=== PATIENT | male | born 1950 | race Hispanic/Latino ===

== ENCOUNTER 2017-03-24 12:11 | Day surgery (SDC) | payer BC ==
[2017-03-24] MEDS ORDERED: NACL BACTERIOSTATIC INFILTRATI ONE (12:50)
[2017-03-24] MEDS ORDERED: VANCOMYCIN/NS 1 GM/250 ML 1 GM/250 ML BAG IV NR (13:30)
--- NOTE | 2017-03-24 13:54 | Anesthesia Day of Surgery ---
Anesthesia Day of Surgery - Day of Surgery Patient Examined: Yes Patient H&P Reviewed: Yes Patient is NPO: Yes
[2017-03-24] MEDS ORDERED: ZOFRAN IV PRN (13:56)
[2017-03-24] MEDS ORDERED: DILAUDID IV PRN (13:56)
[2017-03-24] MEDS ORDERED: SUBLIMAZE IV PRN (13:56)
--- NOTE | 2017-03-24 13:56 | Anesthesia Consultation ---
Anesthesia Consult and Med Hx Date of service: 03/24/17 - Airway Anesthetic Teeth Evaluation: Good ROM Head & Neck: Adequate Mental/Hyoid Distance: Adequate Mallampati Class: Class III Intubation Access Assessment: Possibly Difficult - Pulmonary Exam CTA: Yes - Cardiac Exam Cardiac Exam: RRR - Pre-Operative Health Status ASA Pre-Surgery Classification: ASA3 Proposed Anesthetic Plan: General - Pulmonary Hx Smoking: Yes (STOPPED X 50 YRS) Hx Sleep Apnea: (MORRIS PRE SCREEN HIGH RISK) - Cardiovascular System Hx Hypertension: No - Endocrine Hx Non-Insulin Dependent Diabetes: Yes Hx Hypothyroidism: Yes - Other Systems Hx Cancer: No Hx Obesity: Yes
[2017-03-24] MEDS ORDERED: NACL 0.9% 1000 ML 1,000 ML IV SCH ×2 (14:00)
[2017-03-24] MEDS ORDERED: PEPCID IV NR (14:00)
--- NOTE | 2017-03-24 15:57 | Short Stay Summary ---
Short Stay Documentation Date of service: 03/24/17 - History H&P: obtained from office - Allergies and Medications Current Medications: Allergies Penicillins Allergy (Verified 03/17/17 17:25) Hives Home Medications Medication Instructions Recorded Confirmed Last Taken Type Aspirin [Lo-Dose Aspirin EC] 81 mg PO DAILY 03/17/17 03/24/17 03/16/17 History Colesevelam [Welchol] 625 mg PO DAILY 03/17/17 03/17/17 03/23/17 History Cyanocobalamin (Vitamin B-12) 1,000 mcg PO DAILY 03/17/17 03/17/17 03/23/17 History [Vitamin B-12] Levothyroxine [Synthroid] 50 mcg PO QAM 03/17/17 03/24/17 03/23/17 History Pitavastatin Calcium [LiVALO] 4 mg PO DAILY 03/17/17 03/17/17 03/23/17 History Pyridoxine [Vitamin B-6] 50 mg PO DAILY 03/17/17 03/17/17 03/23/17 History Terazosin [Hytrin] 10 mg PO QHS 03/17/17 03/17/17 03/23/17 History metFORMIN [Glucophage] 500 mg PO QDAY 03/17/17 03/24/17 03/23/17 History Ascorbic Acid [Vitamin C] 1,000 mg PO DAILY 03/24/17 03/24/17 03/23/17 History Cholecalciferol (Vitamin D3) 2,000 unit PO DAILY 03/24/17 03/24/17 03/23/17 History [Vitamin D3] Cinnamon Bark [Cinnamon] 3 tab PO DAILY 03/24/17 03/24/17 03/23/17 History Multivitamin [Multiple Vitamins] 1 each PO DAILY 03/24/17 03/24/17 03/23/17 History [place]-3S/Dha/Epa/Fish Oil [Fish 1 cap PO DAILY 03/24/17 03/24/17 03/23/17 History Oil [place]-3 Softgel] Active Medications Famotidine (Pepcid) 20 mg IV PREOP NR Stop: 03/24/17 23:59 Last Admin: 03/24/17 14:21 Dose: 20 mg Fentanyl (Sublimaze) 50 mcg IV Q5MIN PRN PRN Reason: Pain , Severe (7-10) Stop: 03/24/17 23:59 Hydromorphone HCl (Dilaudid) 0.25 mg IV Q10MIN PRN PRN Reason: Pain, Moderate (4-6) Stop: 03/24/17 23:59 Vancomycin HCl (Vancomycin/Ns 1 Gm/250 Ml) 1 gm in 250 mls @ 166.667 mls/hr IV PREOP NR Stop: 03/24/17 23:59 Last Admin: 03/24/17 14:38 Dose: 166.667 mls/hr Sodium Chloride (Nacl 0.9% 1000 Ml) 1,000 mls @ 100 mls/hr IV DIRECT FRANCOIS Last Admin: 03/24/17 14:20 Dose: 100 mls/hr Sodium Chloride (Nacl 0.9% 1000 Ml) 1,000 mls @ 75 mls/hr IV DIRECT FRANCOIS Ondansetron HCl (Zofran) 4 mg IV ONCE PRN PRN Reason: Nausea And Vomiting - Brief post op/procedure progress note Date of procedure: 03/24/17 Pre-op diagnosis: phimosis Post-op diagnosis: same Procedure: circumcision Anesthesia: GETA Findings: phimosis Surgeon: ARNIE VOGEL Estimated blood loss: minimal Pathology: list Specimen disposition: to lab Condition: stable - Hospital course Hospital course: orpacuhome - Disposition Condition at discharge: Good Disposition: DC-01 TO HOME OR SELFCARE Short Stay Discharge Plan Activity: advance as tolerated Diet: advance as tolerated Follow up with: ARNIE VOGEL MD [Staff Physician] - 7 Days Prescriptions: Sulfamethoxazole/Trimethoprim [Bactrim DS TAB] 1 each PO BID #10 tablet
[2017-03-24] MEDS ORDERED: DIPRIVAN 10 MG/ML IV ONE ×2 (16:07→16:27)
[2017-03-24] MEDS ORDERED: SUBLIMAZE ONE (16:07)
[2017-03-24] MEDS ORDERED: MARCAINE 0.25% INFILTRATI ONE ×2 (16:35→17:48)
[2017-03-24] MEDS ORDERED: ZOFRAN ONE (16:35)
[2017-03-24] MEDS ORDERED: TRIPLE ANTIBIOTIC TP ONE ×2 (16:35→17:48)
[2017-03-24] MEDS ORDERED: XYLOCAINE MPF 2% ONE (16:37)
[2017-03-24] MEDS ORDERED: NACL 0.9% IR ONE (17:48)
--- NOTE | 2017-03-24 18:31 | Post Anesthesia Evaluation ---
- Post Anesthesia Evaluation Patient Participated: Yes Airway Patent: Yes Stable Respiratory Function: Yes Temp > 96.8F: Yes Pain Manageable: Yes Adequeate Hydration: Yes Anesthesia Complications: No Other Comments: Awaiting H&H
[2017-03-24] MEDS ORDERED: NORCO 5/325 PO PRN (18:40)
[2017-03-24 19:50] VITALS: BP 148/89
--- NOTE | 2017-04-02 07:51 | Operative Report ---
PREOPERATIVE DIAGNOSIS: Phimosis, balanitis. POSTOPERATIVE DIAGNOSIS: Phimosis, balanitis. PROCEDURE: Circumcision. SURGEON: David Haider M.D. ANESTHESIA: General. SPECIMENS: Foreskin. ESTIMATED BLOOD LOSS: Minimal. COMPLICATIONS: None. FINDINGS: No deviation. CLINICAL INDICATIONS: Counseled RCBA, antibiotics, SCDs. The patient with recurrent inflammation, infection, unable to retract the foreskin. DESCRIPTION OF PROCEDURE: The patient was transferred to the OR suite in supine position, anesthesia, prepped and draped in standard fashion. At this point, our attention was taken to the foreskin, unable to retract. Then incision made at 12 o'clock position and then able to retract. Next, a ring of free tissue was demarcated with a marking pen proximal and distal circumferential lines were circumscribed with #15 blade. Next, free ring of tissue was removed with electrocautery. Next, the area was cleaned with normal saline. We then placed approximation sutures at 3, 12, 9 and 6 o'clock position. In between these replaced interrupted 3-0 chromic and 4-0 Vicryl. Wound was irrigated. At this point, Neosporin placed and then the Vaseline gauze, then a Thelma, then a Coban. The patient doing well during the procedure, awakened and transferred to the PACU in good and stable condition. JOB# [id number] ATS/NTS
== END 2017-03-24 19:35 | disposition home or self-care (01) ==
LOC: OR 12:11
PROVIDERS: ATTEND Urology
DX: N47.1 Phimosis (principal); N48.6 Induration penis plastica; N48.1 Balanitis; I10 Essential (primary) hypertension; K21.9 Gastro-esophageal reflux disease without esophagitis; E11.9 Type 2 diabetes mellitus without complications; E03.9 Hypothyroidism, unspecified; E78.00 Pure hypercholesterolemia, unspecified; E66.9 Obesity, unspecified; Z68.41 Body mass index [BMI] 40.0-44.9, adult; Z79.82 Long term (current) use of aspirin; Z87.891 Personal history of nicotine dependence; Z88.0 Allergy status to penicillin; Z79.84 Long term (current) use of oral hypoglycemic drugs
CPT/HCPCS: 54161; 82962; 88304; A4217; J2405; J2704; J3010; J3370; J7030; A6250